=== PATIENT | male | born 1975 | race American Indian/Alaskan Native ===

== ENCOUNTER 2017-07-25 22:40 | Emergency (ER) | payer OTHER ==
[2017-07-25 22:47] VITALS: BMI 28.6
[2017-07-25 22:48] VITALS: BP 125/80; PULSE 71; RESP 18; TEMP 97.8; O2SAT 96
--- NOTE | 2017-07-25 22:52 | ED PDOC ---
Arrival/HPI <Jon Whaley - Last Filed: 07/25/17 23:52> <Leeroy Carranza - Last Filed: 07/28/17 01:18> - General Chief Complaint: Lower Extremity Problem/Injury - History of Present Illness Narrative History of Present Illness (Text): 07/25/17 23:03 42 yo M with with PMH of left toe fracture ~20 yrs ago presents to ED due to a 1 week history of left great toe pain. Pt states that toe hurts when at rest and has been increasing over the last 2 days. Ambulation is becoming increasingly difficult due to toe pain. Pt denies any recent trauma. Pt denied overall LE edema, swelling, or erythema, numbness, or claudication. PMD: None (Jon Whaley) Past Medical History - Provider Review Nursing Documentation Reviewed: Yes - Cardiac Hx Cardiac Disorders: No - Pulmonary Hx Respiratory Disorders: No - Neurological Hx Neurological Disorder: No - HEENT Hx HEENT Disorder: No - Renal Hx Renal Disorder: No - Endocrine/Metabolic Hx Endocrine Disorders: No - Hematological/Oncological Hx Blood Disorders: No - Integumentary Hx Dermatological Disorder: No - Musculoskeletal/Rheumatological Hx Musculoskeletal Disorders: Yes Other/Comment: hx of fx great toe - Gastrointestinal Hx Gastrointestinal Disorders: No - Genitourinary/Gynecological Hx Genitourinary Disorders: No - Psychiatric Hx Psychophysiologic Disorder: No Hx Substance Use: No - Anesthesia Hx Anesthesia: Yes <Jon Whaley - Last Filed: 07/25/17 23:52> Family/Social History - Physician Review Nursing Documentation Reviewed: Yes Family/Social History: No Known Family HX Smoking Status: Never Smoked Hx Alcohol Use: No Hx Substance Use: No <Jon Whaley - Last Filed: 07/25/17 23:52> Allergies/Home Meds <Jon Whaley - Last Filed: 07/25/17 23:52> <Leeroy Carranza - Last Filed: 07/28/17 01:18> Allergies/Adverse Reactions: Allergies No Known Allergies Allergy (Verified 07/25/17 22:43) Home Medications: Home Meds Medication Instructions Recorded Confirmed No Known Home Med 07/25/17 07/25/17 Review of Systems - Physician Review All systems were reviewed & negative as marked: Yes - Review of Systems Constitutional: Normal Eyes: Normal ENT: Normal Respiratory: Normal Cardiovascular: Normal Gastrointestinal: Normal Genitourinary Male: Normal Musculoskeletal: Other (Left great toe pain) Neurological: Normal Endocrine: Normal <Jon Whaley - Last Filed: 07/25/17 23:52> Physical Exam Vital Signs Reviewed: Yes Temperature: Afebrile Blood Pressure: Normal Respiratory Rate: Normal Appearance: Positive for: Well-Appearing Pain Distress: None Mental Status: Positive for: Alert and Oriented X 3 - Systems Exam Head: Present: Atraumatic, Normocephalic Pupils: Present: PERRL Extroacular Muscles: Present: EOMI Conjunctiva: Present: Normal Mouth: Present: Moist Mucous Membranes Neck: Present: Normal Range of Motion Respiratory/Chest: Present: Clear to Auscultation. No: Accessory Muscle Use, Wheezes, Rales, Rhonchi Cardiovascular: Present: Regular Rate and Rhythm, Normal S1, S2. No: Murmurs, Rub, Gallop Abdomen: No: Tenderness, Distention, Peritoneal Signs, Guarding Back: Present: Normal Inspection Upper Extremity: Present: Normal Inspection Lower Extremity: Present: Other (Mild swelling and TTP near left great toe cuticle, no joint swelling or limited ROM, no motor or sensory deficits) Neurological: Present: GCS=15 Skin: Present: Warm, Dry Psychiatric: Present: Alert, Oriented x 3 <oJn Whaley - Last Filed: 07/25/17 23:52> Vital Signs Temp Pulse Resp BP Pulse Ox 07/25/17 22:48 97.8 F 71 18 125/80 96 07/25/17 22:43 97.8 F 70 18 125/80 96 Medical Decision Making <Jon Whaley - Last Filed: 07/25/17 23:52> <Leeroy Carranza - Last Filed: 07/28/17 01:18> ED Course and Treatment: 07/25/17 23:09 Assessment: 42 yo M presents to ED with left great toe pain. Plan: - Left great toe x-ray 07/25/17 23:52 Left great toe x-ray negative. Discussed results with patient. Offered referral information for Podiatry if pain persists. Instructed patient to keep area clean. (Jon Whaley) 07/25/17 23:55 Pt. seen and evaluated with medical device sales consultant.Agree with HPI ,management and treatment plan. (Leeroy Carranza) - RAD Interpretation Radiology Orders: 07/25/17 23:00 FOOT LEFT GREAT TOE ROUTINE [RAD] Stat - PA / [employer] SUPERVISOR / Resident Statement / has reviewed & agrees with the documentation as recorded. / has examined the patient and agrees with the treatment plan. <Leeroy Carranza - Last Filed: 07/28/17 01:18> Disposition/Present on Arrival - Present on Arrival Any Indicators Present on Arrival: No History of DVT/PE: No History of Uncontrolled Diabetes: No Urinary Catheter: No History of Decub. Ulcer: No History Surgical Site Infection Following: None - Disposition Have Diagnosis and Disposition been Completed?: Yes Disposition Time: 23:54 Patient Plan: Discharge <Jon Whaley - Last Filed: 07/25/17 23:52> <Leeroy Carranza - Last Filed: 07/28/17 01:18> - Disposition Diagnosis: Contusion of left great toe without damage to nail Disposition: HOME/ ROUTINE Condition: STABLE Discharge Instructions (ExitCare): Contusion (DC) Additional Instructions: 1. Keep area clean 2. May use over the counter ibuprofen for pain; take with food 3. If pain persists, follow up with podiatry, Dr. Brandy DPM Referrals: Bert Nava DPM [Staff Provider] - Follow up with primary Forms: [employer] (Mongolian)
--- NOTE | 2017-07-26 11:13 | RAD ---
PROCEDURE: Left Foot Radiographs. HISTORY: left great toe pain COMPARISON: None. FINDINGS: BONES: Normal. No fracture. JOINTS: Normal. SOFT TISSUES: Normal. OTHER FINDINGS: None. IMPRESSION: Normal left foot radiographs.
== END 2017-07-26 | disposition home or self-care (01) ==
LOC: ED 22:40
DX: S90.112A Contusion of left great toe without damage to nail, initial encounter (principal); X58.XXXA Exposure to other specified factors, initial encounter; Y92.9 Unspecified place or not applicable

== ENCOUNTER 2017-09-12 23:59 | Observation (INO) | payer OTHER ==
[2017-09-12 23:59] VITALS: BMI 28.6
--- NOTE | 2017-09-13 00:39 | ED PDOC ---
Arrival/HPI - General Chief Complaint: Chest Pain Time Seen by Provider: 09/13/17 00:24 Historian: Patient - History of Present Illness Narrative History of Present Illness (Text): 09/13/17 00:31 A 42 year old male with no significant past medical history presents to the emergency department complaining of 2 episodes of chest discomfort today. The patient describes the discomfort as a pressure- like sensation. He notes that the first episode was while he was sitting in his vehicle this afternoon, and described it as a pressure and rumbling sensation. This evening, while resting at home, he began to feel the discomfort again. He notes that the discomfort is isolated to the left side of the chest. It is non-radiating. The patient notes that he took 4 baby Aspirins prior to arrival to the emergency department. He notes that he is currently feeling better. The patient notes that he is a past smoker and denies any drug use. He has a family medical history of diabetes and hypertension. The patient denies fevers, chills, headache, dizziness, shortness of breath, dyspnea on exertion, cough, abdominal pain, nausea, vomiting, diarrhea, back pain, neck pain, urinary/bowel changes, or any other complaint. Time/Duration: Other (Today) Symptom Onset: Sudden Symptom Course: Unchanged Activities at Onset: Rest, Light Context: Home Past Medical History - Provider Review Nursing Documentation Reviewed: Yes - Cardiac Hx Cardiac Disorders: No - Pulmonary Hx Respiratory Disorders: No - Neurological Hx Neurological Disorder: No - HEENT Hx HEENT Disorder: No - Renal Hx Renal Disorder: No - Endocrine/Metabolic Hx Endocrine Disorders: No - Hematological/Oncological Hx Blood Disorders: No - Integumentary Hx Dermatological Disorder: No - Musculoskeletal/Rheumatological Hx Musculoskeletal Disorders: Yes Other/Comment: hx of fx great toe - Gastrointestinal Hx Gastrointestinal Disorders: No - Genitourinary/Gynecological Hx Genitourinary Disorders: No - Psychiatric Hx Psychophysiologic Disorder: No Hx Substance Use: No - Anesthesia Hx Anesthesia: Yes Family/Social History - Physician Review Nursing Documentation Reviewed: Yes Family/Social History: No Known Family HX Smoking Status: Never Smoked Hx Alcohol Use: No Hx Substance Use: No Allergies/Home Meds Allergies/Adverse Reactions: Allergies No Known Allergies Allergy (Verified 09/13/17 00:15) Home Medications: Home Meds Medication Instructions Recorded Confirmed No Known Home Med 07/25/17 09/13/17 Review of Systems - Physician Review All systems were reviewed & negative as marked: Yes - Review of Systems Constitutional: absent: Fevers, Night Sweats Respiratory: absent: SOB, Cough Cardiovascular: Chest Pain. absent: ESPARZA Gastrointestinal: absent: Abdominal Pain, Stool Changes, Diarrhea, Nausea, Vomiting Genitourinary Male: absent: Urinary Output Changes Musculoskeletal: absent: Back Pain, Neck Pain Neurological: absent: Headache, Dizziness Physical Exam Vital Signs Reviewed: Yes Vital Signs Temp Pulse Resp BP Pulse Ox 09/13/17 08:25 98.6 F 71 17 107/60 99 09/13/17 04:08 70 18 128/78 97 09/13/17 03:00 70 18 122/67 97 09/13/17 01:19 66 16 125/73 95 09/13/17 00:15 97.5 F L 66 18 139/86 99 Temperature: Hypothermic Blood Pressure: Normal Pulse: Regular Respiratory Rate: Normal Appearance: Positive for: Well-Appearing, Non-Toxic, Comfortable Pain Distress: None Mental Status: Positive for: Alert and Oriented X 3 - Systems Exam Head: Present: Atraumatic, Normocephalic Pupils: Present: PERRL Extroacular Muscles: Present: EOMI Conjunctiva: Present: Normal Mouth: Present: Moist Mucous Membranes Neck: Present: Normal Range of Motion Respiratory/Chest: Present: Clear to Auscultation, Good Air Exchange. No: Respiratory Distress, Accessory Muscle Use, Tender to Palpation Cardiovascular: Present: Regular Rate and Rhythm, Normal S1, S2. No: Murmurs Abdomen: No: Tenderness, Distention, Peritoneal Signs Back: Present: Normal Inspection Upper Extremity: Present: Normal Inspection. No: Cyanosis, Edema Lower Extremity: Present: Normal Inspection. No: Edema Neurological: Present: GCS=15, CN II-XII Intact, Speech Normal Skin: Present: Warm, Dry, Normal Color. No: Rashes Psychiatric: Present: Alert, Oriented x 3, Normal Insight, Normal Concentration Medical Decision Making ED Course and Treatment: 09/13/17 00:40 Impression: A 42 year old male presents to the emergency department complaining of 2 episodes of pressure like chest discomfort today. Plan: -- EKG -- Reassess and disposition Progress Notes: EKG: Ordered, reviewed, and independently interpreted the EKG. Rate : 65 BPM Rhythm : NSR Interpretation : T- wave inversion in Lead 3 and AVF. 09/13/17 03:32: Chest X-ray read and interpreted by me shows no acute processes. 09/13/17 04:08: Case discussed in detail with Dr. Bello. Accepts patient to her service. Requests Dr. Ramirez on consult. - Lab Interpretations Lab Results: 09/13/17 02:08 09/13/17 02:08 Lab Results 09/13/17 02:08: WBC 4.9, RBC 4.81, Hgb 13.2 L, Hct 39.7 L, MCV 82.5, MCH 27.4, MCHC 33.2, RDW 13.4, Plt Count 204, MPV 10.0 09/13/17 02:08: Sodium 140, Potassium 3.6, Chloride 103, Carbon Dioxide 28, Anion Gap 13, BUN 12, Creatinine 1.0, Est GFR ( Amer) > 60, Est GFR (Non- Af Amer) > 60, Random Glucose 96, Calcium 9.2, Total Bilirubin 0.4, AST 36, ALT 46, Alkaline Phosphatase 35 L, Lactate Dehydrogenase 573, Total Creatine Kinase 342 H, CK-MB (CK-2) 2.0, CK-MB (CK-2) % Cancelled, Troponin I < 0.01, Total Protein 7.1, Albumin 3.9, Globulin 3.2, Albumin/Globulin Ratio 1.2 09/13/17 02:08: PT 11.2, INR 0.98, APTT 32.1 - RAD Interpretation Radiology Orders: 09/13/17 01:31 CHEST PORTABLE [RAD] Stat - EKG Interpretation Interpreted by ED Physician: Yes Type: 12 lead EKG - Scribe Statement The provider has reviewed the documentation as recorded by the Scribe Nubia Fisher Provider Scribe Attestation: All medical record entries made by the Scribe were at my direction and personally dictated by me. I have reviewed the chart and agree that the record accurately reflects my personal performance of the history, physical exam, medical decision making, and the department course for this patient. I have also personally directed, reviewed, and agree with the discharge instructions and disposition. Disposition/Present on Arrival - Present on Arrival Any Indicators Present on Arrival: No History of DVT/PE: No History of Uncontrolled Diabetes: No Urinary Catheter: No History of Decub. Ulcer: No History Surgical Site Infection Following: None - Disposition Have Diagnosis and Disposition been Completed?: Yes Diagnosis: Chest pain Disposition: HOSPITALIZED Disposition Time: 04:28 Patient Plan: Observation Patient Problems: Current Active Problems Problem Status Onset Chest pain Acute Condition: STABLE
[2017-09-13 02:58] LABS: HEMOGLOBIN 13.2 g/dL (14.0-18.0); MEAN CELL VOLUME 82.5 fl (80.0-105.0); MEAN CORPUSCULAR HEMOGLOBIN 27.4 pg (25.0-35.0); MEAN CORPUSCULAR HGB CONC 33.2 g/dl (31.0-37.0); RBC 4.81 10^6/uL (3.5-6.1); RED CELL DISTRIBUTION WIDTH 13.4 % (11.5-14.5); WHITE BLOOD COUNT 4.9 10^3/ul (4.5-11.0)
[2017-09-13 03:04] LABS: ALB/GLOB RATIO 1.2 (1.1-1.8); ALBUMIN 3.9 g/dL (3.0-4.8); CALCIUM 9.2 mg/dL (8.4-10.5); GFR AFRICAN-AMERICAN > 60; GFR NON-AFRICAN AMERICAN > 60
[2017-09-13 03:15] LABS: INR 0.98 (0.93-1.08); PARTIAL THROMBOPLASTIN TIME 32.1 Seconds (25.1-36.5); PROTHROMBIN TIME 11.2 SECONDS (9.4-12.5)
[2017-09-13 03:16] LABS: TROPONIN I < 0.01 ng/mL
[2017-09-13 03:18] LABS: ALT/SGPT 46 U/L (7-56); AST/SGOT 36 U/L (17-59); BLOOD UREA NITROGEN 12 mg/dL (7-21)
--- NOTE | 2017-09-13 09:21 | RAD ---
HISTORY: pain COMPARISON: No prior. FINDINGS: LUNGS: No active pulmonary disease. PLEURA: No significant pleural effusion identified, no pneumothorax apparent. CARDIOVASCULAR: Normal. OSSEOUS STRUCTURES: No significant abnormalities. VISUALIZED UPPER ABDOMEN: Normal. OTHER FINDINGS: None. IMPRESSION: No active disease.
--- NOTE | 2017-09-13 09:39 | CARD ---
APPROVED REPORT EKG Measurement Heart [id number] <Conclusion> Normal sinus rhythm Normal ECG
[2017-09-13 11:11] VITALS: O2SAT 97
[2017-09-13] MEDS ORDERED: Naproxen 550 mg Tab PO SCH (12:00)
[2017-09-13 15:58] VITALS: BP 128/64; RESP 20; TEMP 97.2
[2017-09-13 18:22] VITALS: PULSE 82
[2017-09-14] MEDS ORDERED: Pantoprazole 40 mg EC Tab PO SCH (06:30)
--- NOTE | 2017-09-16 11:39 | HP ---
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 He states yesterday when he was driving, he felt some vibration in his left side of the chest that continued off and on for many hours. He did not pay much attention. He felt like pressure. No associated nausea, vomiting. No diarrhea. No dizziness. No palpitation. No headache. Pain intermittently continued until he reached the home. He took 2 aspirin with no significant relief. He was debating he should go to emergency room or not. When he reached home and he has mentioned to his who brought him to emergency room for further evaluation. PAST MEDICAL HISTORY: The patient has no significant past medical history. No history of nausea, vomiting. No diarrhea. No history of chest pain in the past. ALLERGY: He is not allergic to any medication. MEDICATION AT HOME: He usually takes baby aspirin off and on. PHYSICAL EXAMINATION: GENERAL: He is awake and alert, able to communicate. VITAL SIGNS: He is afebrile, pulse 77, respirations 17, blood pressure 126/57. LUNGS: Bilateral good airflow. No rhonchi or crackle. HEART: S1 and S2 audible. ABDOMEN: Soft. Nontender. No rebound. No guarding. NEUROLOGIC: The patient is awake, alert, oriented, communicative. LABORATORY EXAM: WBC is 4.9, hemoglobin 13, hematocrit 39, platelet 204. PT 11.2, INR 0.98. Chemistry: Sodium 140, potassium 3.6, chloride 103, CO2 of 28, BUN 12, creatinine 1, blood sugar of 96. LFTs are within normal limit. Alk phos is 35. CPK is 342. ASSESSMENT: 1. Noncardiac chest pain. 2. 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 He does admit doing some work a day or two ago. PLAN: I will give him Naprosyn. We will follow up troponin. Awaiting Cardiology evaluation. The patient can be discharged today evening if he is stable and can have stress test as outpatient. Jorgito Bello MD
== END 2017-09-13 18:59 | disposition home or self-care (01) ==
LOC: ED 23:59 → ERH 09-13 04:28 → 3RNO 09-13 11:27
PROVIDERS: ADMIT Internal Medicine; ATTEND Internal Medicine
DX: R07.89 Other chest pain (principal)
CPT/HCPCS: 71045; 80053; 82550; 82553; 83615; 84484; 85027; 85610; 85730; 93005; 99285; G0378